=== PATIENT | male | born 1990 | race Caucasian/White ===

== ENCOUNTER 2022-08-01 18:05 | Emergency (ER) | payer OTHER | END 2022-08-01 19:54 | disposition home or self-care (01) | LOC: JD.ED 18:05 | DX: S06.0X1A Concussion with loss of consciousness of 30 minutes or less, initial encounter (principal); S01.01XA Laceration without foreign body of scalp, initial encounter; Z88.5 Allergy status to narcotic agent; W18.09XA Striking against other object with subsequent fall, initial encounter; Y99.0 Civilian activity done for income or pay | CPT/HCPCS: 12001; 99282 ==

== ENCOUNTER 2025-09-18 07:20 | Emergency (ER) | payer SELFPAY ==
[2025-09-18] MEDS: Fluorescein 1 MG Ophth Strip EYELF ONE (08:00)
== END 2025-09-18 09:20 | disposition home or self-care (01) ==
LOC: JD.ED 07:20
DX: B02.30 Zoster ocular disease, unspecified (principal); Z88.5 Allergy status to narcotic agent; Z79.899 Other long term (current) drug therapy
CPT/HCPCS: 99282; J3490